=== PATIENT | female | born 1930 | race Caucasian/White ===

== ENCOUNTER 2017-01-19 20:08 | Emergency (ER) | payer MEDICARE ==
[~2017-01-19] VITALS: Ht 160 cm; Wt 52.0 kg
[~2017-01-19 20:08] MED LIST: LISI10TA PO
[2017-01-19 20:14] VITALS: BP 149/72; PULSE 64; RESP 18; O2SAT 94
--- NOTE | 2017-01-19 21:05 | DRSVH ---
PROCEDURE: X-RAY PELVIS W/LAT HIP (RT) ([id number]) INDICATIONS: Fall TECHNIQUE: AP pelvis with lateral view(s) of the right hip. COMPARISON: None. FINDINGS: Bones: No fractures or dislocations. Pelvic ring appears intact. No suspicious bony lesions. Soft tissues: The visualized bowel gas pattern is normal. No suspicious soft tissue calcifications. IMPRESSION: No trauma, prior right total hip arthroplasty with no evidence of device disruption or lo osening. Dictated by: Roldan Saavedra M.D. on 01/19/2017 at 21:03 Approved by: Roldan Saavedra M.D. on 01/19/2017 at 21:04
--- NOTE | 2017-01-19 21:18 | ED.REPORT ---
HPI-Extremity Problem Lower Date of Service Jan 19, 2017 ED Provider: Dr. Alexander Post M.D. An 86 year old female with a medical history including diabetes and bilateral hip fractures s/p bilateral hip replacements presents to the ED with right- sided sacral pain onset this morning, upon awakening. Yesterday the patient landed on her right hip during a mechanical ground level fall onto grassy ground while working in her lawn. She did not hit her head or lose consciousness and was able to ambulate afterwards. The patient was initially pain-free after the fall. She normally takes ASA for pain. Nursing Notes Stated Complaint: RT HIP PAIN/FALL Chief Complaint: Extremity Trauma Nursing Notes Reviewed: Yes Allergies: Coded Allergies: No Known Allergies (Unverified , 06/29/16) Scheduled Lisinopril (Lisinopril) 10 Mg Tablet 10 MG PO DAILY General Time Seen by MD: 21:18 Chief Complaint Other (Right-Sided Sacral Pain) Hx Obtained From: Patient Arrived By: Walk-in Onset Occurred: 9 - 12 hours ago Symptom Duration: Since onset Caused by: Accidental, Fall on ground Context: Occurred at: Home injury Location: : Hip right Quality: Painful Severity: Current: Moderate Severity: Maximum: Moderate Associated with: Denies: Fever, Loss of consciousness, Unable to bear weight, Unable to walk Pertinent Negative: Relieved by nothing Immunizations: Tetanus up to date Recent Healthcare: No recent doctor visit Past Medical History Past Medical History Diabetes Pancreatitis Bilateral hip fractures Past Surgical History Cholecystectomy Bilateral hip replacements Smoking History Unknown if Ever Smoker Social History Alcohol Use: Denies alcohol use Other Social History: Good social support, Local resident Ambulatory Status Walker Review of Systems Review of Systems Note: + Right-sided sacral pain Constitutional: Denies: Fever Musculoskeletal: Reports: Joint pain (Right hip) Neurologic: Denies: Change LOC, Headache, Problem walking, Syncope Complete sys rev & neg: except as marked. Respiratory: Denies: Non-productive cough, Shortness of breath GI: Denies: Diarrhea, Vomiting Physical Exam Initial Vital Signs Vital Signs (First) Date Time Temp Pulse Resp B/P Pulse Ox O2 Delivery O2 Flow Rate FiO2 01/19/17 20:14 36.2 64 18 149/72 94 Room Air Initial VS: Reviewed Head / Eyes: Atraumatic, Normocephalic ENT: Conjunctiva normal, No scleral icterus Neck: Supple, Full range of motion Respiratory: No respiratory distress Skin: Warm, Dry Neurologic: Alert, Oriented, Nonfocal Psychiatric: Mood/affect normal, Behavior normal, Normal thought content Lower Extremity / Pelvis / MS: Atraumatic (No ecchymosis), No deformity, Neurologic intact, Vascular intact Lower Ext Brief Normals: Hip R exam normal Pelvis: Positive: Tender post iliac crest Patient is able to bear weight General/Constitutional: Awake, Alert, No acute distress Back: No midline vertebral tend Flank / Spine / Paraspinal: Positive: Sacral paraspinal tend... Interpretation & Diagnostics X-Ray Interpretation Xray Interpretation: IMPRESSION: No trauma, prior right total hip arthroplasty with no evidence of device disruption or loosening. Dictated by: Roldan Saavedra M.D. on 01/19/2017 at 21:03 X-Ray Ordered: Pelvis, Hip right (Lateral) Re-Eval/Medical Decision Med Decision/Clinical Course 86-year-old presents after a mechanical ground-level fall twenty-four hours ago with some pain in her right sacrum and hip. No head injury no neck injury and no other injury complained of. No blood thinners in use. Negative x-rays and benign exam. Home with Aleve and follow up with PCP. Re-Evaluation/Progress : Time of Eval: 21:30 Patient Status: Condition improved Re-Evaluation/Progress Note: Discussed with patient x-ray results, diagnosis, and plan for discharge. Follow-up and return to the ER instructions given. Patient agrees with plan for care and all questions were addressed. Counseled Regarding: Diagnosis, Need for follow-up, When/why to return to ED Discharge & Departure Impression: Primary Impression: Fall Encounter type: initial encounter Qualified Code: W19.XXXA - Unspecified fall, initial encounter Additional Impression: Sacral contusion Encounter type: initial encounter Qualified Code: S30.0XXA - Contusion of lower back and pelvis, initial encounter Disposition: Home Discharge Condition All VS Reviewed: Yes Condition: Improved Patient Instructions: Contusions in Adults (ED) Additional Instructions: Use a walking aid such as a cane or a four-legged cane to try and prevent falls. Aleve one or two tablets twice daily as needed for pain. Follow up with your doctor in the office. Return if any immediate issues. Referrals: Josh Roberts MD (PCP) Scribe Attestation Portions of this note were transcribed by Shannan Carr. I, Dr. Post, personally performed the history, physical exam, and medical decision-making; I reviewed and confirmed the accuracy of the information in the transcribed note. Signed by: Kennedy Chapman, 01/19/2017, 22:45 copies to: Josh Roberts MD, Christopher W MD Jan 19, 2017 21:18 SHANNAN CARR Jan 19, 2017 21:35
[2017-01-19 21:55] VITALS: BP 139/83; PULSE 71; RESP 16; O2SAT 96
== END 2017-01-19 21:57 | disposition home or self-care (01) ==
LOC: SED 20:08
DX: S30.0XXA Contusion of lower back and pelvis, initial encounter (principal); W18.30XA Fall on same level, unspecified, initial encounter; Y93.H9 Activity, other involving exterior property and land maintenance, building and construction; Y92.007 Garden or yard of unspecified non-institutional (private) residence as the place of occurrence of the external cause; Y99.8 Other external cause status; E11.9 Type 2 diabetes mellitus without complications; Z90.49 Acquired absence of other specified parts of digestive tract; Z96.643 Presence of artificial hip joint, bilateral